=== PATIENT | female | born 1980 | race Two or more races ===

== ENCOUNTER 2018-11-25 12:45 | Inpatient (IN) | payer OTHER ==
[~2018-11-25] VITALS: Ht 152.4 cm; Wt 60.8 kg
[2018-11-25] MEDS ORDERED: PRENATABS RX T1 EACH PO (13:51)
[2018-12-08] MEDS ORDERED: Tylenol #3 PO (09:07)
== END 2018-12-08 11:08 | disposition home or self-care (01) | DRG 785 ==
LOC: O/R 12:45 → OB/GYN 12-05 11:38 → LDR 12-05 11:38 → OB/GYN 12-05 16:19
PROVIDERS: Obstetrics & Gynecology; ADMIT Obstetrics & Gynecology
PROC: 0UL70ZZ Occlusion of Bilateral Fallopian Tubes, Open Approach (ICD-10-PCS; 2018-12-05)
PROC: 4A1HXCZ Monitoring of Products of Conception, Cardiac Rate, External Approach (ICD-10-PCS; 2018-12-05)
PROC: 10D00Z1 Extraction of Products of Conception, Low, Open Approach (ICD-10-PCS; principal; 2018-12-05 13:00)
DX: O82 Encounter for cesarean delivery without indication (principal); Z3A.38 38 weeks gestation of pregnancy; Z37.0 Single live birth; Z30.2 Encounter for sterilization